=== PATIENT | male | born 1945 | race Caucasian/White ===

== ENCOUNTER 2017-05-16 22:34 | Observation (INO) | payer MEDICARE, BC ==
[~2017-05-16] VITALS: Ht 177.8 cm; Wt 68.0 kg
[2017-05-16 22:42] VITALS: BP 172/85; PULSE 83; RESP 17; TEMP 97.8; O2SAT 95
[2017-05-16 22:51] VITALS: RESP 17; O2SAT 100
--- NOTE | 2017-05-16 22:53 | PD ---
HPI Chief Complaint: Chest Pain Time Seen by Provider: 22:46 Travel History International Travel<30 days: No Contact w/Intl Traveler<30days: No Traveled to known affect area: No History of Present Illness HPI 71-year-old male with history of hypertension, diabetes, presents via EMS for evaluation of chest pain. He reports that symptoms started prior to arrival when he was walking. He describes it as a pressure across the mid chest region which was constant, initially 9 out of 10. He received 3 sublingual nitroglycerin via EMS and the pain is now down to 1 out of 10. He took 81 mg baby aspirin this morning, EMS provided him with 243 aspirin by mouth. He denies any additional symptoms. He denies acute cough or congestion, shortness of breath, abdominal pain, nausea vomiting, diaphoresis, back pain. He has never had pain like this before. No personal history of coronary disease. Reports family history in the form of his father having an MT at age 50. The patient reports that he last had a stress test 6 years ago and he believes that it was normal. He reports that he is currently traveling from [facility], arrived 2 weeks ago, staying in a hotel. He has no other complaints at this time. [facility] Past Medical History Narrative Medical Reports history of hypertension, diabetes Cardiovascular Problems: Yes (HTN) Diabetes: Yes Social History Tobacco Use: No Allergies-Medications (Allergen,Severity, Reaction): Coded Allergies: No Known Allergies (Unverified , 05/16/17) Reported Meds & Prescriptions Reported Meds & Active Scripts Active Reported Pioglitazone (Pioglitazone HCl) 45 Mg Tab 45 Mg PO DAILY Aspirin 81 Mg Chew 81 Mg CHEW DAILY Atorvastatin (Atorvastatin Calcium) 10 Mg Tab 10 Mg PO HS Amlodipine-Valsartan 5-320 Mg Tab 1 Tab PO DAILY Metoprolol Succinate ER 24 HR (Metoprolol Succinate) 50 Mg Tab 50 Mg PO DAILY Metformin (Metformin HCl) 1,000 Mg Tab 1,000 Mg PO BIDPC Review of Systems Except as stated in HPI: all other systems reviewed are Neg Physical Exam Narrative GENERAL: Well-developed well-nourished male in no acute distress answering questions appropriately vital signs reviewed. SKIN: Warm and dry. HEAD: Atraumatic. Normocephalic. EYES: Pupils equal and round. No scleral icterus. No injection or drainage. ENT: No nasal bleeding or discharge. Mucous membranes pink and moist. NECK: Trachea midline. No JVD. CARDIOVASCULAR: Regular rate and rhythm. No murmur appreciated. RESPIRATORY: No accessory muscle use. Clear to auscultation. Breath sounds equal bilaterally. No crackles no wheezing no rhonchi GASTROINTESTINAL: Abdomen soft, non-tender, nondistended. Hepatic and splenic margins not palpable. MUSCULOSKELETAL: No obvious deformities. No clubbing. No cyanosis. No edema. NEUROLOGICAL: Awake and alert. No obvious cranial nerve deficits. Motor grossly within normal limits. Normal speech. PSYCHIATRIC: Appropriate mood and affect; insight and judgment normal. Data Data Last Documented VS Vital Signs Date Time Temp Pulse Resp B/P (MAP) Pulse Ox O2 Delivery O2 Flow Rate FiO2 05/16/17 23:09 74 14 145/87 (106) 98 Room Air 05/16/17 22:42 97.8 Orders Orders Metoprolol Succinate Er (Toprol Xl) (05/16/17 23:00) Electrocardiogram (05/16/17 22:46) Basic Metabolic Panel (Bmp) (05/16/17 22:46) Ckmb (Isoenzyme) Profile (05/16/17 22:46) Complete Blood Count With Diff (05/16/17 22:46) Magnesium (Mg) (05/16/17 22:46) Prothrombin Time / Inr (Pt) (05/16/17 22:46) Act Partial Throm Time (Ptt) (05/16/17 22:46) Troponin I (05/16/17 22:46) Chest, Single Ap (05/16/17 22:46) Ecg Monitoring (05/16/17 22:46) Bilateral Bp Monitoring (05/16/17 22:46) Iv Access Insert/Monitor (05/16/17 22:46) Oximetry (05/16/17 22:46) Oxygen Administration (05/16/17 22:46) Sodium Chloride 0.9% Flush (Ns Flush) (05/16/17 23:00) Morphine Inj (Morphine Inj) (05/16/17 23:00) CKMB (05/16/17 22:45) CKMB% (05/16/17 22:45) Admit Order (Ed Use Only) (05/16/17 23:35) Labs Laboratory Tests Test 05/16/17 22:45 White Blood Count 6.1 TH/MM3 Red Blood Count 4.07 MIL/MM3 Hemoglobin 13.5 GM/DL Hematocrit 39.1 % Mean Corpuscular Volume 96.0 FL Mean Corpuscular Hemoglobin 33.3 PG Mean Corpuscular Hemoglobin Concent 34.6 % Red Cell Distribution Width 13.8 % Platelet Count 149 TH/MM3 Mean Platelet Volume 9.7 FL Neutrophils (%) (Auto) 59.8 % Lymphocytes (%) (Auto) 28.9 % Monocytes (%) (Auto) 9.0 % Eosinophils (%) (Auto) 2.1 % Basophils (%) (Auto) 0.2 % Neutrophils # (Auto) 3.6 TH/MM3 Lymphocytes # (Auto) 1.8 TH/MM3 Monocytes # (Auto) 0.5 TH/MM3 Eosinophils # (Auto) 0.1 TH/MM3 Basophils # (Auto) 0.0 TH/MM3 CBC Comment DIFF FINAL Differential Comment Prothrombin Time 10.0 SEC Prothromb Time International Ratio 1.0 RATIO Activated Partial Thromboplast Time 24.0 SEC Blood Urea Nitrogen 18 MG/DL Creatinine 1.23 MG/DL Random Glucose 192 MG/DL Calcium Level 8.8 MG/DL Magnesium Level 2.1 MG/DL Sodium Level 141 MEQ/L Potassium Level 3.6 MEQ/L Chloride Level 103 MEQ/L Carbon Dioxide Level 30.5 MEQ/L Anion Gap 8 MEQ/L Estimat Glomerular Filtration Rate 58 ML/MIN Total Creatine Kinase 108 U/L Creatine Kinase MB 1.0 NG/ML Troponin I LESS THAN 0.02 NG/ML MDM Medical Decision Making Medical Screen Exam Complete: Yes Emergency Medical Condition: Yes Medical Record Reviewed: Yes Differential Diagnosis Acute coronary syndrome, angina, pleurisy, pericarditis, myocarditis, spontaneous pneumothorax, aortic dissection, pericardial effusion, pulmonary embolism Narrative Course The patient was placed on ECG monitoring pulse oximetry. 12-lead EKG was obtained revealing sinus rhythm, Q waves noted in inferior leads, no acute ST changes. The patient is noted to be hypertensive with a systolic blood pressure in the 170s, therefore he will be given his usual dose of 50 mg metoprolol. He reports that he has not been taking his medication over the past few days. He continues to have mild chest pain, 1 out of 10, therefore IV morphine has been ordered. Plan is for basic lab work, chest x-ray, extended ECG monitoring. At the end of my shift the patient was signed out pending lab work and imaging studies. Papo Shaffer May 16, 2017 22:53
--- NOTE | 2017-05-16 22:56 | PD ---
Physical Exam Narrative General: The patient is a well-developed well-nourished male in no acute distress. Head and Neck exam: Head is normocephalic atraumatic. Cardiovascular: Regular rate and rhythm with a 1 to 2/6 systolic murmur audible, best audible at the nipple line, just in front of the anterior axillary line. Lungs: Clear to auscultation bilaterally. No wheezes, rhonchi, or rales. Abdomen: Soft, without tenderness to palpation in all 4 quadrants of the abdomen. No guarding, rebound, or rigidity. Normal bowel sounds are audible. No tenderness on palpation of McBurney's point. Extremities: No clubbing, cyanosis, or edema. . Neurologic Exam: Grossly nonfocal. Skin Exam: No rash noted. Intact skin that is warm and dry. Data Data Last Documented VS Vital Signs Date Time Temp Pulse Resp B/P (MAP) Pulse Ox O2 Delivery O2 Flow Rate FiO2 05/16/17 23:09 74 14 145/87 (106) 98 Room Air 05/16/17 22:42 97.8 Orders Orders Metoprolol Succinate Er (Toprol Xl) (05/16/17 23:00) Electrocardiogram (05/16/17 22:46) Basic Metabolic Panel (Bmp) (05/16/17 22:46) Ckmb (Isoenzyme) Profile (05/16/17 22:46) Complete Blood Count With Diff (05/16/17 22:46) Magnesium (Mg) (05/16/17 22:46) Prothrombin Time / Inr (Pt) (05/16/17 22:46) Act Partial Throm Time (Ptt) (05/16/17 22:46) Troponin I (05/16/17 22:46) Chest, Single Ap (05/16/17 22:46) Ecg Monitoring (05/16/17 22:46) Bilateral Bp Monitoring (05/16/17 22:46) Iv Access Insert/Monitor (05/16/17 22:46) Oximetry (05/16/17 22:46) Oxygen Administration (05/16/17 22:46) Sodium Chloride 0.9% Flush (Ns Flush) (05/16/17 23:00) Morphine Inj (Morphine Inj) (05/16/17 23:00) CKMB (05/16/17 22:45) CKMB% (05/16/17 22:45) Admit Order (Ed Use Only) (05/16/17 23:35) Labs Laboratory Tests Test 05/16/17 22:45 White Blood Count 6.1 TH/MM3 Red Blood Count 4.07 MIL/MM3 Hemoglobin 13.5 GM/DL Hematocrit 39.1 % Mean Corpuscular Volume 96.0 FL Mean Corpuscular Hemoglobin 33.3 PG Mean Corpuscular Hemoglobin Concent 34.6 % Red Cell Distribution Width 13.8 % Platelet Count 149 TH/MM3 Mean Platelet Volume 9.7 FL Neutrophils (%) (Auto) 59.8 % Lymphocytes (%) (Auto) 28.9 % Monocytes (%) (Auto) 9.0 % Eosinophils (%) (Auto) 2.1 % Basophils (%) (Auto) 0.2 % Neutrophils # (Auto) 3.6 TH/MM3 Lymphocytes # (Auto) 1.8 TH/MM3 Monocytes # (Auto) 0.5 TH/MM3 Eosinophils # (Auto) 0.1 TH/MM3 Basophils # (Auto) 0.0 TH/MM3 CBC Comment DIFF FINAL Differential Comment Prothrombin Time 10.0 SEC Prothromb Time International Ratio 1.0 RATIO Activated Partial Thromboplast Time 24.0 SEC Blood Urea Nitrogen 18 MG/DL Creatinine 1.23 MG/DL Random Glucose 192 MG/DL Calcium Level 8.8 MG/DL Magnesium Level 2.1 MG/DL Sodium Level 141 MEQ/L Potassium Level 3.6 MEQ/L Chloride Level 103 MEQ/L Carbon Dioxide Level 30.5 MEQ/L Anion Gap 8 MEQ/L Estimat Glomerular Filtration Rate 58 ML/MIN Total Creatine Kinase 108 U/L Creatine Kinase MB 1.0 NG/ML Troponin I LESS THAN 0.02 NG/ML [facility] Medical Record Reviewed: Yes Supervised Visit with KYMBERLY: No Interpretation(s) Last Impressions Chest X-Ray 05/16/17 5945 Signed Impressions: Service Date/Time: Tuesday, May 16, 2017 23:12 - CONCLUSION: No acute cardiopulmonary abnormality is identified. Buddy Eason MD Narrative Course During the course of the patients emergency department visit, the patients history, examination, and differential diagnosis were reviewed with the patient. The patient was placed on a ekg monitor tech with oximetry and frequent blood pressure monitoring. The patient had IV access obtained and blood work sent for analysis. The patient had an EKG done on arrival. The patient's EKG shows a sinus rhythm with occasional supraventricular premature complexes with a heart rate of 79, Q waves are noted in lead 3, no acute ST segment elevation is noted. T waves are inverted in lead 3. QRS duration is 100 ms, QTC 437 ms. The patient was initially provided metoprolol 50 mg by mouth 1, morphine 4 mg IV for pain. The patients laboratory studies were reviewed and remarkable for a white count 6.1, hemoglobin 13.5, platelets 149 with 9 monocytes, BMP is remarkable for a glucose of 192, GFR 58, cardiac enzymes within normal limits, PT 10, PTT 24 Radiology studies were reviewed and remarkable for a chest x-ray that shows no acute cardiopulmonary disease. The patient is agreeable with the plan to proceed with admission to the chest pain center for rule out serial cardiac enzyme protocol followed by stress testing as he does have symptoms of chest pain with a history of diabetes and hypertension. The patient reports that his last stress test was pain 5 and 6 years ago. The patients results were discussed with the patient, including the plan of care. I explained that further testing and/ or monitoring is indicated based on the patients history, examination, and/ or laboratory findings. Therefore, I recommended admission for additional evaluation. The patient expressed understanding and was agreeable with this plan. The patient was admitted to the hospital in stable condition and sent to a bed under the care of the chest pain center. Diagnosis Primary Impression: Chest pain, rule out acute myocardial infarction Admitting Information Admitting Physician Requests: Petra Lopez MD May 16, 2017 22:56
[2017-05-16] MEDS ORDERED: METF1000 PO (22:57)
[2017-05-16] MEDS ORDERED: PIOG45TA5 PO (22:57)
[2017-05-16] MEDS ORDERED: ATOR10TA15 PO (22:57)
[2017-05-16] MEDS ORDERED: ASPI-516 CHEW (22:57)
[2017-05-16] MEDS ORDERED: AMLO-170 PO (22:57)
[2017-05-16] MEDS ORDERED: METO1TAB9 PO (22:57)
[2017-05-16] MEDS ORDERED: METOPROLOL SUCCINATE 50 MG EXTENDED RELEASE TAB PO ONE (23:00)
[2017-05-16] MEDS ORDERED: SODIUM CHLORIDE 0.9% FLUSH 10 ML FLUSH IVF PRN (23:00)
[2017-05-16] MEDS ORDERED: MORPHINE SULFATE 2 MG/ML INJ IV PUSH ONE (23:00)
[2017-05-16 23:07] LABS: AUTOMATED NEUTROPHIL # 3.6 TH/MM3 (1.8-7.7); BASOPHIL % 0.2 % (0.0-2.0); EOSINOPHIL # 0.1 TH/MM3 (0-0.4); EOSINOPHIL % 2.1 % (0.0-4.0); HEMATOCRIT 39.1 % (39.0-51.0); HEMOGLOBIN 13.5 GM/DL (13.0-17.0); LYMPH % 28.9 % (9.0-44.0); LYMPHOCYTE # 1.8 TH/MM3 (1.0-4.8); MEAN CORPUSCULAR HEMOGLOBIN 33.3 PG (27.0-34.0); MEAN CORPUSCULAR HGB CONC 34.6 % (32.0-36.0); MEAN PLATELET VOLUME 9.7 FL (7.0-11.0); MONOCYTE # 0.5 TH/MM3 (0-0.9); NEUT % 59.8 % (16.0-70.0); PLATELET COUNT 149 TH/MM3 (150-450); RED BLOOD COUNT 4.07 MIL/MM3 (4.50-5.90); RED CELL DISTRIBUTION WIDTH 13.8 % (11.6-17.2); WHITE BLOOD COUNT 6.1 TH/MM3 (4.0-11.0)
[2017-05-16 23:09] VITALS: BP 145/87; PULSE 74; RESP 14; O2SAT 98
--- NOTE | 2017-05-16 23:26 | RADRPT ---
EXAM DATE/TIME: 05/16/2017 23:12 [facility] COMPARISON: No previous studies available for comparison. INDICATIONS : Chest pain earlier then resolved. MEDICAL HISTORY : Carcinoma, colon. Hypertension Diabetes mellitus type II. SURGICAL HISTORY : Colon resection. ENCOUNTER: Initial ACUITY: 1 day PAIN SCORE: 0/10 LOCATION: Bilateral chest FINDINGS: Portable AP view of the chest demonstrates a normal-sized cardiac silhouette. No pleural effusion, ai rspace consolidation, or pneumothorax is identified. The bones and soft tissues demonstrate no acute finding. CONCLUSION: No acute cardiopulmonary abnormality is identified. Buddy Eason MD on May 16, 2017 at 23:25 Board Certified Radiologist. This report was verified electronically.
[2017-05-16 23:29] LABS: BICARBONATE 30.5 MEQ/L (21.0-32.0); BLOOD UREA NITROGEN 18 MG/DL (7-18); CALCIUM 8.8 MG/DL (8.5-10.1); CHLORIDE 103 MEQ/L (98-107); CREATININE 1.23 MG/DL (0.60-1.30); GLOMERULAR FILTRATION RATE 58 ML/MIN (>89); GLUCOSE,RANDOM 192 MG/DL (74-106); MAGNESIUM 2.1 MG/DL (1.5-2.5); SODIUM (NA) 141 MEQ/L (136-145)
[2017-05-16 23:32] LABS: TROPONIN I LESS THAN 0.02 NG/ML (0.02-0.05)
[2017-05-17 00:26] VITALS: O2SAT 98
[2017-05-17] MEDS ORDERED: SODIUM CHLORIDE 0.9% FLUSH 10 ML FLUSH IV FLUSH PRN (00:30)
[2017-05-17 01:00] VITALS: BP 147/78; PULSE 78; RESP 18; TEMP 98.4; O2SAT 98
[2017-05-17] MEDS ORDERED: ACETAMINOPHEN 500 MG CPLT PO PRN (01:45)
[2017-05-17] MEDS ORDERED: ONDANSETRON HCL 4 MG/2 ML VIAL IV PUSH PRN (01:45)
[2017-05-17 02:23] LABS: TROPONIN I LESS THAN 0.02 NG/ML (0.02-0.05)
[2017-05-17 04:00] VITALS: BP 157/82; PULSE 74; RESP 18; TEMP 98.2; O2SAT 97
[2017-05-17 05:43] LABS: TROPONIN I LESS THAN 0.02 NG/ML (0.02-0.05)
[2017-05-17 05:45] VITALS: PULSE 62
[2017-05-17 07:13] VITALS: BP 133/63; PULSE 62; RESP 18; TEMP 97.8; O2SAT 94
[2017-05-17] MEDS ORDERED: GLUCAGON 1 MG/ML VIAL OTHER PRN (07:30)
[2017-05-17] MEDS ORDERED: DEXTROSE 50% IN WATER 50 ML VIAL(D50) IV PUSH PRN (07:30)
[2017-05-17] MEDS ORDERED: INSULIN ASPART SUPPLEMENTAL SCALE SQ SCH (08:00)
[2017-05-17 08:43] VITALS: O2SAT 97
[2017-05-17] MEDS ORDERED: SODIUM CHLORIDE 0.9% FLUSH 10 ML FLUSH IV FLUSH SCH (09:00)
[2017-05-17] MEDS ORDERED: amLODIPine BESYLATE 5 MG TAB PO SCH (09:00)
[2017-05-17] MEDS ORDERED: NON-FORMULARY DRUG (Amlodipine-Valsartan 1 TAB) PO SCH (09:00)
[2017-05-17] MEDS ORDERED: VALSARTAN 160 MG TAB PO SCH (09:00)
--- NOTE | 2017-05-17 09:07 | HHI.HP ---
HPI Primary Care Physician Unknown Chief Complaint Chest pain History of Present Illness This is a 71-year-old male that presents to ED via [facility] with a complaint of chest discomfort. Complains of a central/left-sided heaviness/all discomfort that began last evening while walking along a 1 a. Discomfort was a 9 out of 10. Lasted 1 hour. Improvement after getting Aspirin and Nitroglycerin in [facility]. Denies shortness breath nausea or diaphoresis. Discomfort did not radiate. Denies history of CAD. States he had a stress test but it was about 6 years ago that was okay. The chest discomfort has not recurred. Denies recent illness. Denies fevers or chills. Review of Systems General: Patient denies fevers, chills recent, and recent travel HEENT: Patient denies headache, sore throat, difficulty swallowing. Cardiovascular: Has the chest discomfort as mentioned above. Denies sensation of heart beating rapidly or irregularly. No syncope. Denies diaphoresis. Respiratory: Denies shortness of breath or inspirational chest discomfort. Denies coughing wheezing or hemoptysis. GI: Patient denies nausea, vomiting, diarrhea, abdominal pain, bloody stools. Musculoskeletal: Patient denies joint pain or edema. Denies calf pain or edema. Neurovascular: Patient denies numbness, tingling, weakness in extremities. Denies headache. Endocrine: Denies polyuria and polydipsia. Hematologic: Denies easy bruising. Skin: Denies rash or itching. Past Family Social History Allergies: Coded Allergies: No Known Allergies (Unverified , 05/16/17) Past Medical History Hypertension, hyperlipidemia, diabetes. Denies CAD. Lifetime nonsmoker. Past Surgical History Noncontributory. Reported Medications Reported Meds & Active Scripts Active Reported Pioglitazone (Pioglitazone HCl) 45 Mg Tab 45 Mg PO DAILY Aspirin 81 Mg Chew 81 Mg CHEW DAILY Atorvastatin (Atorvastatin Calcium) 10 Mg Tab 10 Mg PO HS Amlodipine-Valsartan 5-320 Mg Tab 1 Tab PO DAILY Metoprolol Succinate ER 24 HR (Metoprolol Succinate) 50 Mg Tab 50 Mg PO DAILY Metformin (Metformin HCl) 1,000 Mg Tab 1,000 Mg PO BIDPC Active Ordered Medications Current Medications Medications (Trade) Dose Ordered Sig/Anaid Route Start Time Stop Time Status Last Admin (NS Flush) 2 ml UNSCH PRN IV FLUSH 05/17/17 00:30 (NS Flush) 2 ml BID IV FLUSH 05/17/17 09:00 (Tylenol) 500 mg Q4H PRN PO 05/17/17 01:45 (Zofran Inj) 4 mg Q6H PRN IV PUSH 05/17/17 01:45 (NovoLOG SUPPLEMENTAL SCALE) 1 ACHS SLIDING SCALE SQ 05/17/17 08:00 (D50w (Vial) Inj) 50 ml UNSCH PRN IV PUSH 05/17/17 07:30 (Glucagon Inj) 1 mg UNSCH PRN OTHER 05/17/17 07:30 (Lipitor) 10 mg HS PO 05/17/17 21:00 (Norvasc) 5 mg DAILY PO 05/17/17 09:00 (Diovan) 320 mg DAILY PO 05/17/17 09:00 Family History States his father had an OH at age 50. Social History Nonsmoker. Denies alcohol or illicit drugs. Physical Exam Vital Signs Vital Signs Date Time Temp Pulse Resp B/P (MAP) Pulse Ox O2 Delivery O2 Flow Rate FiO2 05/17/17 08:43 97 21 05/17/17 07:13 97.8 62 18 133/63 (86) 94 05/17/17 05:45 62 05/17/17 04:00 98.2 74 18 157/82 (107) 97 05/17/17 01:00 98.4 78 18 147/78 (101) 98 05/17/17 00:41 05/17/17 00:26 98 05/16/17 23:09 74 14 145/87 (106) 98 Room Air 05/16/17 22:51 17 100 Room Air 05/16/17 22:49 83 17 100 Room Air 05/16/17 22:42 97.8 83 17 172/85 (114) 95 Physical Exam GENERAL: This is a well-nourished, well-developed patient, in no apparent distress. Patient speaks in clear complete sentences. Patient is pleasant. HEENT: Head is atraumatic and normocephalic. Neck is supple without lymphadenopathy and trachea is midline. No JVD or carotid bruits. CARDIOVASCULAR: Regular rate and rhythm without murmurs, gallops, or rubs. RESPIRATORY: Clear to auscultation. Breath sounds equal bilaterally. No wheezes , rales, or rhonchi. Chest wall is nontender. No use of accessory muscles. GASTROINTESTINAL: Abdomen is nontender, nondistended. Abdomen soft. No obvious pulsatile mass or bruit. No CVA tenderness. Strong femoral pulses bilaterally. Normal bowel sounds in all quadrants. MUSCULOSKELETAL: Patient is moving upper and lower extremities freely. No calf tenderness or edema, no Homans sign. Strong pulses in upper and lower extremities. NEUROLOGICAL: Patient is alert and oriented. Cranial nerves 2-12 are grossly intact. No focal deficits and speech is clear. SKIN: No rash and turgor is normal.r Laboratory Laboratory Tests Test 05/16/17 22:45 05/17/17 01:45 05/17/17 05:00 White Blood Count 6.1 Red Blood Count 4.07 Hemoglobin 13.5 Hematocrit 39.1 Mean Corpuscular Volume 96.0 Mean Corpuscular Hemoglobin 33.3 Mean Corpuscular Hemoglobin Concent 34.6 Red Cell Distribution Width 13.8 Platelet Count 149 Mean Platelet Volume 9.7 Neutrophils (%) (Auto) 59.8 Lymphocytes (%) (Auto) 28.9 Monocytes (%) (Auto) 9.0 Eosinophils (%) (Auto) 2.1 Basophils (%) (Auto) 0.2 Neutrophils # (Auto) 3.6 Lymphocytes # (Auto) 1.8 Monocytes # (Auto) 0.5 Eosinophils # (Auto) 0.1 Basophils # (Auto) 0.0 CBC Comment DIFF FINAL Differential Comment Prothrombin Time 10.0 Prothromb Time International Ratio 1.0 Activated Partial Thromboplast Time 24.0 Blood Urea Nitrogen 18 Creatinine 1.23 Random Glucose 192 Calcium Level 8.8 Magnesium Level 2.1 Sodium Level 141 Potassium Level 3.6 Chloride Level 103 Carbon Dioxide Level 30.5 Anion Gap 8 Estimat Glomerular Filtration Rate 58 Total Creatine Kinase 108 85 76 Creatine Kinase MB 1.0 Troponin I LESS THAN 0.02 LESS THAN 0.02 LESS THAN 0.02 Result Diagram: 05/16/17224405/16/172244 Imaging Last 48 hours Impressions Chest X-Ray 05/16/172245 Signed Impressions: Service Date/Time: Tuesday, May 16, 2017 23:12 - CONCLUSION: No acute cardiopulmonary abnormality is identified. Buddy Eason MD Course EKGs have sinus rhythm without significant ST segment depressions or elevations. There are PACs and PVCs. Caprini VTE Risk Assessment Caprini VTE Risk Assessment: Mod/High Risk (score >= 2) Caprini Risk Assessment Model Point Value = 1 Point Value = 2 Point Value = 3 Point Value = 5 Age 41-60 Minor surgery BMI > 25 kg/m2 Swollen legs Varicose veins or History of unexplained or recurrent spontaneous Oral contraceptives or hormone replacement Sepsis (< 1 month) Serious lung disease, including pneumonia (< 1 month) Abnormal pulmonary function Acute myocardial infarction Congestive heart failure (< 1 month) History of inflammatory bowel disease Medical patient at bed rest Age 61-74 Arthroscopic surgery Major open surgery (> 45 min) Laparoscopic surgery (> 45 min) Malignancy Confined to bed (> 72 hours) Immobilizing plaster cast Central venous access Age >= 75 History of VTE Family history of VTE Factor V Leiden Prothrombin [id number] Lupus anticoagulant Anticardiolipin antibodies Elevated serum homocysteine Heparin-induced thrombocytopenia Other congenital or acquired thrombophilia Stroke (< 1 month) Elective arthroplasty Hip, pelvis, or leg fracture Acute spinal cord injury (< 1 month) Prophylaxis Regimen Total Risk Factor Score Risk Level Prophylaxis Regimen 0-1 Low Early ambulation 2 Moderate Order ONE of the following: *Sequential Compression Device (SCD) *Heparin 5000 units SQ BID 3-4 Higher Order ONE of the following medications: *Heparin 5000 units SQ TID *Enoxaparin/Lovenox 40 mg SQ daily (WT < 150 kg, CrCl > 30 mL/min) *Enoxaparin/Lovenox 30 mg SQ daily (WT < 150 kg, CrCl > 10-29 mL/min) *Enoxaparin/Lovenox 30 mg SQ BID (WT < 150 kg, CrCl > 30 mL/min) AND/OR *Sequential Compression Device (SCD) 5 or more Highest Order ONE of the following medications: *Heparin 5000 units SQ TID (Preferred with Epidurals) *Enoxaparin/Lovenox 40 mg SQ daily (WT < 150 kg, CrCl > 30 mL/min) *Enoxaparin/Lovenox 30 mg SQ daily (WT < 150 kg, CrCl > 10-29 mL/min) *Enoxaparin/Lovenox 30 mg SQ BID (WT < 150 kg, CrCl > 30 mL/min) AND *Sequential Compression Device (SCD) Assessment and Plan Assessment and Plan * Chest pain: Patient has had serial cardiac enzymes and EKGs for ruling out purposes. He was seen by Dr. Elvin Bryan of cardiology and the chest pain center. He had a [place] protocol stress test that was nonischemic and at this time will be discharged home with instructions to follow-up with PCP. Resume his home medications. Return to ED for interval issues. * Diabetes: Patient was on sliding scale insulin coverage while in chest pain center. Resume home medications. Follow diabetic diet. * Hypertension: Continue current medication. * Hyperlipidemia: Continue current medication. Patient is stable at this time. He is agreeable to this plan. Russell Villegas May 17, 2017 09:07
--- NOTE | 2017-05-17 09:09 | HHI.DCPOC ---
Discharge Care Plan Diagnosis: (1) Chest pain (2) Hypertension (3) Hyperlipidemia (4) DM (diabetes mellitus) Goals to Promote Your Health * To prevent worsening of your condition and complications * To maintain your health at the optimal level Directions to Meet Your Goals Take your medications as prescribed Follow your dietary instruction Follow activity as directed Keep your appointments as scheduled Take your immunizations and boosters as scheduled If your symptoms worsen call your PCP, if no PCP go to Urgent Care Center or Emergency Room Smoking is Dangerous to Your Health. Avoid second hand smoke Call the 24-hour hour crisis hotline for domestic abuse at Russell Villegsa May 17, 2017 09:09
--- NOTE | 2017-05-17 16:33 | EKG ---
Date Performed: 05/17/2017 Time Performed: 01:18:59 PTAGE: 71 years EKG: Sinus rhythm WITH FREQUENT SUPRAVENTRICULAR PREMATURE COMPLEXES IN A BIGEMINAL PATTERN POSSIBLE INFERIOR MYOCARDI AL INFARCTION ABNORMAL ECG PREVIOUS TRACING : 05/16/2017 22.47 Since previous tracing, no significant change noted DOCTOR: Elvin Bryan Interpretating Date/Time 05/17/2017 16:32:08
--- NOTE | 2017-05-17 16:34 | EKG ---
Date Performed: 05/16/2017 Time Performed: 22:47:25 PTAGE: 71 years EKG: Sinus rhythm WITH OCCASIONAL SUPRAVENTRICULAR PREMATURE COMPLEXES IN A BIGEMINAL PATTERN POSSIBLE INFERIOR MYOCAR DIAL INFARCTION ABNORMAL RHYTHM ECG NO PREVIOUS TRACING DOCTOR: Elvin Bryan Interpretating Date/Time 05/17/2017 16:32:35
--- NOTE | 2017-05-17 16:36 | TR ---
Date Performed: 05/17/2017 Time Performed: 08:12:31 DOCTOR: Elvin Bryan DRUG LIST: CLINICAL HISTORY: REASON FOR TEST: REASON FOR ENDING: OBSERVATION: CONCLUSION: LUANA PROTOCOL. NO CP. TEST STOPPED AFTER REACHING GOAL HR SECONDARY TO SOB AND LEG FATIGUE. PACS AND PVCS PRESENT.Maximum EQ=693 % Max HR Achieved=86.0% Resting XS=721/70 Maximum BP=15 0/70 Total Exercise Time=8:51 COMMENTS: Patient exercised using the Luana protocol. No electrocardiographic changes were seen to suggest ischemia. Hemodynamic response to exercise was normal. No significant arrhythmia was prese nt.
--- NOTE | 2017-05-17 16:36 | EKG ---
Date Performed: 05/17/2017 Time Performed: 04:58:01 PTAGE: 71 years EKG: Sinus rhythm WITH FREQUENT PAC'S NONSPECIFIC T-WAVE ABNORMALITY ABNORMAL ECG PREVIOUS TRACING : 05/17/2017 01.18 DOCTOR: Elvin Bryan Interpretating Date/Time 05/17/2017 16:34:30
[2017-05-17] MEDS ORDERED: ATORVASTATIN 10 MG TAB PO SCH (21:00)
== END 2017-05-17 12:16 | disposition home or self-care (01) ==
LOC: NEPC 22:34 → NEDA 23:37 → NEPHCDU 05-17 00:52
DX: R07.89 Other chest pain (principal); I10 Essential (primary) hypertension; I49.3 Ventricular premature depolarization; I49.1 Atrial premature depolarization; R94.31 Abnormal electrocardiogram [ECG] [EKG]; E78.5 Hyperlipidemia, unspecified; E11.9 Type 2 diabetes mellitus without complications; Z79.899 Other long term (current) drug therapy; Z79.82 Long term (current) use of aspirin; Z79.84 Long term (current) use of oral hypoglycemic drugs
CPT/HCPCS: 71045; 80048; 82550; 82552; 83735; 84484; 85025; 85610; 85730; 93005; 93017; 96374; 96376; 99285; G0378; J2270